=== PATIENT | female | born 1995 | race Caucasian/White ===

== ENCOUNTER 2020-08-13 17:00 | Emergency (ER) | payer BC ==
--- NOTE | 2020-08-13 18:09 | EDM.PDOC ---
ED HPI GENERAL MEDICAL PROBLEM - General Chief Complaint: Respiratory Problem Stated Complaint: SHORTNESS OF BREATH, COVID 19 + Time Seen by Provider: 08/13/20 17:46 Source of Information: Reports: Patient History Limitations: Reports: No Limitations - History of Present Illness INITIAL COMMENTS - FREE TEXT/NARRATIVE: Patient presents with shortness of breath. She is on day 8 of Covid and is under quarantine for 3 more days. She tested positive at a [facility] testing center and hasn't seen her PCP. She has taken Dayquil but nothing else. She has not had any fever or cough with it; just fatigue, low energy, mild shortness of breath and one episode of vomiting 6 days ago. Today she feels that the shortness of breath is a little worse. - Related Data Allergies Allergy/AdvReac Type Severity Reaction Status Date / Time No Known Allergies Allergy Verified 08/13/20 17:14 Home Meds: Home Meds Desvenlafaxine [Desvenlafaxine ER] 50 mg PO BEDTIME 08/13/20 [History] Levonorgestrel-Ethin Estradiol [Vienva-28 Tablet] 1 tab PO BEDTIME 08/13/20 [History] Past Medical History HEENT History: Reports: Impaired Vision Psychiatric History: Reports: Depression Endocrine/Metabolic History: Reports: Obesity/BMI 30+ - Infectious Disease History Infectious Disease History: Reports: Chicken Pox, Novel Coronavirus, Shingles - Past Surgical History HEENT Surgical History: Reports: Oral Surgery Social & Family History - Family History Family Medical History: No Pertinent Family History - Tobacco Use Tobacco Use Status *Q: Never Tobacco User Second Hand Smoke Exposure: No - Caffeine Use Caffeine Use: Reports: Coffee, Soda - Recreational Drug Use Recreational Drug Use: No ED ROS GENERAL - Review of Systems Review Of Systems: See Below Constitutional: Reports: Weakness, Fatigue. Denies: Fever, Chills HEENT: Denies: Ear Pain, Vision Change Respiratory: Reports: Shortness of Breath. Denies: Cough Cardiovascular: Denies: Chest Pain, Lightheadedness, Syncope GI/Abdominal: Denies: Abdominal Pain, Diarrhea : Denies: Flank Pain Musculoskeletal: Reports: No Symptoms Skin: Denies: Cyanosis, Jaundice, Mottled, Pallor, Diaphoresis Neurological: Denies: Confusion, Dizziness, Headache, Seizure, Syncope, Trouble Speaking, Difficulty Walking Psychiatric: Denies: Agitation, Anxiety, Confusion ED EXAM, GENERAL - Physical Exam Exam: See Below Exam Limited By: No Limitations General Appearance: Alert, WD/WN, No Apparent Distress Eye Exam: Bilateral Eye: EOMI, Normal Inspection, PERRL Ears: Normal External Exam, Hearing Grossly Normal Nose: Normal Inspection, No Blood Throat/Mouth: Normal Inspection, Normal Lips, Normal Voice, No Airway Compromise Head: Atraumatic, Normocephalic Neck: Normal Inspection, Full Range of Motion Respiratory/Chest: No Respiratory Distress, Lungs Clear, Normal Breath Sounds, No Accessory Muscle Use. No: Crackles, Rales, Rhonchi, Wheezing, Stridor Cardiovascular: Regular Rate, Rhythm, No Murmur GI/Abdominal: Normal Bowel Sounds, Soft, Non-Tender, No Organomegaly Back Exam: Normal Inspection, Full Range of Motion. No: CVA Tenderness (L), CVA Tenderness (R) Extremities: Normal Inspection, Normal Range of Motion Neurological: Alert, Oriented, Normal Cognition, No Motor/Sensory Deficits Psychiatric: Normal Affect, Normal Mood Skin Exam: Warm, Dry, Intact, Normal Color, No Rash Course - Vital Signs Last Recorded V/S: Last Vital Signs Temp 96.4 F L 08/13/20 17:09 Pulse 87 08/13/20 17:18 Resp 16 08/13/20 17:18 BP 116/74 08/13/20 17:18 Pulse Ox 97 08/13/20 17:18 - Orders/Labs/Meds Orders: Active Orders 24 hr Category Date Time Status Chest 2V [CR] Stat Exams 08/13/20 17:08 Ordered - Re-Assessments/Exams Free Text/Narrative Re-Assessment/Exam: 08/13/20 18:29 CXR looks clear. Radiologist reports no acute process. Discussed findings and recommendations with patient. Discharged to home in stable condition. Departure - Departure Time of Disposition: 18:28 Disposition: Home, Self-Care 01 Condition: Good Clinical Impression: COVID-19 - Discharge Information Instructions: COVID-19 Frequently Asked Questions Referrals: Marylu Pal MD [Primary Care Provider] - Additional Instructions: Drink 8 cups of water daily. Continue your quarantine as instructed. Follow up with your PCP if any problems or go to ER if urgent. Sepsis Event Note (ED) - Evaluation Sepsis Screening Result: No Definite Risk - Focused Exam Vital Signs: Vital Signs Temp Pulse Resp BP Pulse Ox 08/13/20 17:18 87 16 116/74 97 08/13/20 17:09 96.4 F L 84 16 125/70 98 - My Orders Last 24 Hours: My Active Orders 08/13/20 17:08 Chest 2V [CR] Stat - Assessment/Plan Last 24 Hours: My Active Orders 08/13/20 17:08 Chest 2V [CR] Stat
--- NOTE | 2020-08-13 18:29 | CR ---
[id number] RAD/RAD Chest PA And Lateral EXAM: RAD Chest PA And Lateral CLINICAL DATA: SHORTNESS OF BREATH COVID-19 COMPARISON: No previous similar exam is available. FINDINGS: The lungs are clear. The cardiomediastinal contour is normal. The regional bones and soft tissues are unremarkable. IMPRESSION: NO ACUTE PROCESS. Erik Cage MD 08/13/20 [id number] Thank you for allowing us to participate in the care of your patient.
== END 2020-08-13 18:41 | disposition home or self-care (01) ==
LOC: KA.ED 17:00
DX: U07.1 COVID-19 (principal); F32.9 Major depressive disorder, single episode, unspecified; E66.9 Obesity, unspecified; Z68.37 Body mass index [BMI] 37.0-37.9, adult; Z79.899 Other long term (current) drug therapy
CPT/HCPCS: 71046; 99283; 99284-25